=== PATIENT | female | born 1950 ===

== ENCOUNTER → 2020-02-19 14:29 | Outpatient (BNVA) | payer SELFPAY | PROVIDERS: Visit Provider Internal Medicine ==

== ENCOUNTER → 2020-08-18 09:52 | Outpatient (BNVA) | payer SELFPAY | PROVIDERS: Visit Provider Internal Medicine | DX: Z02.79 Encounter for issue of other medical certificate (principal) ==

== ENCOUNTER 2022-03-18 10:13 | Outpatient (REF) | payer MEDICARE, SELFPAY | END 2022-03-18 10:14 | disposition home or self-care (01) | LOC: HO.SH 10:13 | PROVIDERS: Visit Provider Internal Medicine | DX: Z01.118 Encounter for examination of ears and hearing with other abnormal findings (principal); H90.3 Sensorineural hearing loss, bilateral; H61.21 Impacted cerumen, right ear | CPT/HCPCS: 92553; 92555; 92567 ==